=== PATIENT | female | born 1950 | race Caucasian/White ===

== ENCOUNTER 2018-02-28 19:35 | Emergency (ER) | payer MEDICARE, OTHER ==
[2018-02-28] MEDS ORDERED: Sodium Chloride 0.9% 1,000 ML IV SCH (20:00)
--- NOTE | 2018-02-28 20:06 | EDM.PDOC ---
ED HPI GENERAL MEDICAL PROBLEM - General Chief Complaint: General Stated Complaint: SICK Time Seen by Provider: 02/28/18 20:05 Source of Information: Reports: Patient - History of Present Illness INITIAL COMMENTS - FREE TEXT/NARRATIVE: HISTORY AND PHYSICAL: History of present illness: [Patient presents with fever cough and weakness over the last week no nausea vomiting chills sweats no chest pain shortness breath headache dizziness palpitation no bowel or urine symptoms] Review of systems: As per history of present illness and below otherwise all systems reviewed and negative. Past medical history: As per history of present illness and as reviewed below otherwise noncontributory. Surgical history: As per history of present illness and as reviewed below otherwise noncontributory. Social history: No reported history of drug or alcohol abuse. Family history: As per history of present illness and as reviewed below otherwise noncontributory. Physical exam: HEENT: Atraumatic, normocephalic, pupils reactive, negative for conjunctival pallor or scleral icterus, mucous membranes moist, throat clear, neck supple, nontender, trachea midline. Lungs: Clear to auscultation, breath sounds equal bilaterally, chest nontender. Heart: S1S2, regular, negative for clicks, rubs, or JVD. Abdomen: Soft, nondistended, nontender. Negative for masses or hepatosplenomegaly. Negative for costovertebral tenderness. Pelvis: Stable nontender. Genitourinary: Deferred. Rectal: Deferred. Extremities: Atraumatic, negative for cords or calf pain. Neurovascular unremarkable. Neuro: Awake, alert, oriented. Cranial nerves II through XII unremarkable. Cerebellum unremarkable. Motor and sensory unremarkable throughout. Exam nonfocal. Diagnostics: [CBC CMP UA INR troponin lipase cultures EKG Chest 1 view ] Therapeutics: [ saline 1 25 mL per hour Zofran 8 mg IV ]: 750 mg IV now Patient offered admission but refuses at this time Levaquin 500mg by mouth daily #10 no refill Albuterol HFA smoking cessation recommended Return if symptoms persist or worsen Impression: Left lower lobe pneumonia [ fever ] Definitive disposition and diagnosis as appropriate pending reevaluation and review of above. - Related Data Allergies Allergy/AdvReac Type Severity Reaction Status Date / Time No Known Allergies Allergy Verified 04/27/14 12:12 Home Meds: Home Meds . [No Known Home Meds] 02/28/18 [History] Past Medical History - Past Health History Medical/Surgical History: Denies Medical/Surgical History Social & Family History - Tobacco Use Smoking Status *Q: Current Every Day Smoker Years of Tobacco use: 50 Packs/Tins Daily: 1 ED ROS GENERAL - Review of Systems Review Of Systems: See Below ED EXAM, GENERAL - Physical Exam Exam: See Below Course - Vital Signs Last Recorded V/S: Last Vital Signs Temp 100.7 F H 02/28/18 20:02 Pulse 85 02/28/18 20:02 Resp 16 02/28/18 20:02 BP 135/73 02/28/18 20:02 Pulse Ox 99 02/28/18 20:02 - Orders/Labs/Meds Orders: Active Orders 24 hr Category Date Time Status EKG Documentation Completion [RC] STAT Care 02/28/18 19:59 Active Chest 1V Frontal [CR] Stat Exams 02/28/18 19:59 Taken CULTURE BLOOD [BC] Stat Lab 02/28/18 20:22 Received CULTURE BLOOD [BC] Stat Lab 02/28/18 20:44 Received UA W/MICROSCOPIC [URIN] Stat Lab 02/28/18 21:38 Ordered Levofloxacin/Dextrose 5%-Water [Levaquin in D5W 750 MG/ Med 02/28/18 21:37 Active 150 ML] 750 mg Premix Bag 1 bag IV ONETIME Sodium Chloride 0.9% [Normal Saline] 1,000 ml Med 02/28/18 20:00 Active IV STAT Blood Culture x2 Reflex Set [OM.PC] Stat Oth 02/28/18 20:05 Ordered Medication Orders Sodium Chloride (Normal Saline) 1,000 mls @ 125 mls/hr IV STAT RADHA Last Admin: 02/28/18 20:15 Dose: 125 mls/hr Levofloxacin/Dextrose 750 mg/ (Premix) 150 mls @ 100 mls/hr IV ONETIME ONE Stop: 02/28/18 23:06 Labs: Laboratory Tests 02/28/18 02/28/18 02/28/18 Range/Units 20:22 20:22 20:22 WBC 16.61 H (4.0-11.0) K/uL RBC 4.74 (4.30-5.90) M/uL Hgb 14.4 (12.0-16.0) g/dL Hct 41.8 (36.0-46.0) % MCV 88.2 (80.0-98.0) fL MCH 30.4 (27.0-32.0) pg MCHC 34.4 (31.0-37.0) g/dL RDW Std Deviation 41.6 (28.0-62.0) fl RDW Coeff of [place] 13 (11.0-15.0) % Plt Count 239 (150-400) K/uL MPV 11.20 (7.40-12.00) fL Neut % (Auto) 84.5 H (48.0-80.0) % Lymph % (Auto) 9.3 L (16.0-40.0) % Alexander % (Auto) 5.8 (0.0-15.0) % Eos % (Auto) 0.2 (0.0-7.0) % Baso % (Auto) 0.2 (0.0-1.5) % Neut # (Auto) 14.0 H (1.4-5.7) K/uL Lymph # (Auto) 1.6 (0.6-2.4) K/uL Alexander # (Auto) 1.0 H (0.0-0.8) K/uL Eos # (Auto) 0.0 (0.0-0.7) K/uL Baso # (Auto) 0.0 (0.0-0.1) K/uL Nucleated RBC % 0.0 /100WBC Nucleated RBCs # 0 K/uL INR 1.04 Sodium 135 L (136-145) mmol/L Potassium 4.4 (3.5-5.1) mmol/L Chloride 99 (98-107) mmol/L Carbon Dioxide 26.2 (21.0-32.0) mmol/L BUN 12 (7.0-18.0) mg/dL Creatinine 0.8 (0.6-1.0) mg/dL Est Cr Clr Drug Dosing 62.64 mL/min Estimated GFR (MDRD) > 60.0 ml/min Glucose 104 (74-106) mg/dL Calcium 8.9 (8.5-10.1) mg/dL Total Bilirubin 0.5 (0.2-1.0) mg/dL AST 22 (15-37) IU/L ALT 29 (14-63) IU/L Alkaline Phosphatase 76 (46-116) U/L Troponin I < 0.050 (0.000-0.056) ng/mL Total Protein 7.8 (6.4-8.2) g/dL Albumin 3.6 (3.4-5.0) g/dL Globulin 4.2 H (2.0-3.5) g/dL Albumin/Globulin Ratio 0.9 L (1.3-2.8) Lipase 78 (73-393) U/L Meds: Medications Generic Name Dose Route Start Last Admin Trade Name Freq PRN Reason Stop Dose Admin Sodium Chloride 1,000 mls @ 125 mls/hr 02/28/18 20:00 02/28/18 20:15 Normal Saline IV 125 mls/hr STAT RADHA Administration Levofloxacin/Dextrose 750 mg/ 150 mls @ 100 mls/hr 02/28/18 21:37 Premix IV 02/28/18 23:06 ONETIME ONE Discontinued Medications Generic Name Dose Route Start Last Admin Trade Name Freq PRN Reason Stop Dose Admin Ondansetron HCl 8 mg 02/28/18 19:59 02/28/18 20:35 Zofran IVPUSH 02/28/18 20:00 Not Given ONETIME ONE Departure - Departure Time of Disposition: 21:39 Disposition: Home, Self-Care 01 Condition: Good Clinical Impression: Left lower lobe pneumonia - Discharge Information Referrals: Manish Ramirez MD [Primary Care Provider] - Forms: ED Department Discharge Additional Instructions: Medication as prescribed Return if symptoms persist or worsen despite treatment Follow-up with primary care in 2 weeks sooner as needed [facility] - Primary Care [address] [place], [place] [id number] The following information is given to patients seen in the emergency department who are being discharged to home. This information is to outline your options for follow-up care. We provide all patients seen in our emergency department with a follow-up referral. The need for follow-up, as well as the timing and circumstances, are variable depending upon the specifics of your emergency department visit. If you don't have a primary care physician on staff, we will provide you with a referral. We always advise you to contact your personal physician following an emergency department visit to inform them of the circumstance of the visit and for follow-up with them and/or the need for any referrals to a consulting specialist. The emergency department will also refer you to a specialist when appropriate. This referral assures that you have the opportunity for follow-up care with a specialist. All of these measure are taken in an effort to provide you with optimal care, which includes your follow-up. Under all circumstances we always encourage you to contact your private physician who remains a resource for coordinating your care. When calling for follow-up care, please make the office aware that this follow-up is from your recent emergency room visit. If for any reason you are refused follow-up, please contact the [facility] emergency department at and asked to speak to the emergency department charge nurse. - My Orders Last 24 Hours: My Active Orders 02/28/18 19:59 EKG Documentation Completion [RC] STAT Chest 1V Frontal [CR] Stat 02/28/18 20:00 Sodium Chloride 0.9% [Normal Saline] 1,000 ml IV STAT 02/28/18 20:05 Blood Culture x2 Reflex Set [OM.PC] Stat 02/28/18 20:22 CULTURE BLOOD [BC] Stat 02/28/18 20:44 CULTURE BLOOD [BC] Stat 02/28/18 21:37 Levofloxacin/Dextrose 5%-Water [Levaquin in D5W 750 MG/150 ML] 750 mg Premix Bag 1 bag IV ONETIME 02/28/18 21:38 UA W/MICROSCOPIC [URIN] Stat - Assessment/Plan Last 24 Hours: My Active Orders 02/28/18 19:59 EKG Documentation Completion [RC] STAT Chest 1V Frontal [CR] Stat 02/28/18 20:00 Sodium Chloride 0.9% [Normal Saline] 1,000 ml IV STAT 02/28/18 20:05 Blood Culture x2 Reflex Set [OM.PC] Stat 02/28/18 20:22 CULTURE BLOOD [BC] Stat 02/28/18 20:44 CULTURE BLOOD [BC] Stat 02/28/18 21:37 Levofloxacin/Dextrose 5%-Water [Levaquin in D5W 750 MG/150 ML] 750 mg Premix Bag 1 bag IV ONETIME 02/28/18 21:38 UA W/MICROSCOPIC [URIN] Stat
[2018-02-28] MEDS: Ondansetron 4 MG/2 ML SDV IVPUSH ONE ×2 (20:16→20:35)
[2018-02-28 21:17] LABS: CHLORIDE,CL 99 mmol/L (98-107); SODIUM,NA 135 mmol/L (136-145)
[2018-02-28] MEDS ORDERED: Levofloxacin/Dextrose 5%-Water 750 MG in Premix Bag 1 BAG IV ONE (21:37)
--- NOTE | 2018-03-01 09:04 | CR ---
EXAM DATE: 02/28/18 PATIENT'S AGE: 67 Patient: BILLY VALDERRAMA Facility: [place], [place] Site . Site : [id number] Study: XRay Chest [id number]/[id number] 9:18:53 PM Ordering Physician: Doctor Calero Final Report: INDICATION: pain, sob TECHNIQUE: Chest 1 view COMPARISON: December 30, 2011 FINDINGS: Cardiovascular and mediastinum: Stable cardiac silhouette. Mediastinum is within normal limits. Lungs and pleural space: Left lower lobe consolidation. Hyperinflation and scarring. No sign of pleural effusion. No pneumothorax. Bones and soft tissues: Degenerative changes. IMPRESSION: Left lower lobe consolidation. Please correlate for signs of pneumonia. Dictated by Ja Damico MD @ 02/28/2018 9:30:05 PM Dictated by: Ja Damico MD @ 02/28/2018 21:30:20 (Electronic Signature) Report Signed by Proxy. JJ
== END 2018-02-28 23:39 | disposition home or self-care (01) ==
LOC: MW.ED 19:35
DX: J18.9 Pneumonia, unspecified organism (principal); F17.210 Nicotine dependence, cigarettes, uncomplicated
CPT/HCPCS: 71045; 80053; 81001; 83690; 84484; 85025; 85610; 87040; 93005; 96361; 96365; 99285; J1956; J7040; 99283; J2405

== ENCOUNTER 2023-02-27 19:13 | Emergency (ER) | payer MEDICARE, OTHER ==
[2023-02-27 20:45] LABS: BASOPHILS PERCENT AUTO 0.3 % (0.0-1.5); EOSINOPHILS ABSOLUTE AUTO 0.1 K/uL (0.0-0.7); EOSINOPHILS PERCENT AUTO 0.7 % (0.0-7.0); HEMOGLOBIN 14.1 g/dL (12.0-16.0); LYMPHOCYTES ABSOLUTE AUTO 1.8 K/uL (0.6-2.4); LYMPHOCYTES PERCENT AUTO 17.1 % (16.0-40.0); MEAN CORPUSCULAR HEMOGLOBIN 29.3 pg (27.0-32.0); MEAN CORPUSCULAR HGB CONC 33.6 g/dL (31.0-37.0); MEAN CORPUSCULAR VOLUME 87.1 fL (80.0-98.0); MONOCYTES ABSOLUTE AUTO 0.8 K/uL (0.0-0.8); MONOCYTES PERCENT AUTO 7.8 % (0.0-15.0); NEUTROPHILS ABSOLUTE AUTO 7.9 K/uL (1.4-5.7); NEUTROPHILS PERCENT AUTO 74.1 % (48.0-80.0); NRBC ABSOLUTE 0 K/uL; PLATELET COUNT,PLT 169 K/uL (150-400); RED BLOOD CELL COUNT 4.82 M/uL (4.30-5.90); WHITE BLOOD CELL COUNT,WBC 10.63 K/uL (4.0-11.0)
[2023-02-27 21:09] LABS: ALBUMIN 3.6 g/dL (3.4-5.0); BILIRUBIN TOTAL 0.4 mg/dL (0.2-1.0); CALCIUM 9.1 mg/dL (8.5-10.1); CARBON DIOXIDE,CO2 26.9 mmol/L (21.0-32.0); CREATININE 0.8 mg/dL (0.6-1.0); EST CRCL DRUG DOSING (CG) 55.37 mL/min; POTASSIUM,K 4.7 mmol/L (3.5-5.1); PROTEIN TOTAL,TP 7.2 g/dL (6.4-8.2)
== END 2023-02-27 23:13 | disposition home or self-care (01) ==
LOC: MW.ED 19:13
DX: R42 Dizziness and giddiness (principal); R11.0 Nausea; F17.210 Nicotine dependence, cigarettes, uncomplicated; Z20.822 Contact with and (suspected) exposure to COVID-19
CPT/HCPCS: 36415; 80053; 83690; 84484; 85025; 93005; 99284; U0002; 93010; 99283

== ENCOUNTER 2023-07-21 13:05 | Emergency (ER) | payer MEDICARE, OTHER, MEDICAID ==
[2023-07-21 14:13] LABS: CORONAVIRUS COVID-19 NAA NEGATIVE (NEGATIVE); INFLUENZA A NAA NEGATIVE (NEGATIVE); INFLUENZA B NAA NEGATIVE (NEGATIVE); RESPIRATORY SYNCYTIAL VIR NAA NEGATIVE (NEGATIVE)
== END 2023-07-21 14:40 | disposition home or self-care (01) ==
LOC: MW.ED 13:05
DX: J18.9 Pneumonia, unspecified organism (principal); Z20.822 Contact with and (suspected) exposure to COVID-19
CPT/HCPCS: 0241U; 71046; 99283

== ENCOUNTER 2024-05-21 13:45 | Emergency (ER) | payer MEDICARE, OTHER, MEDICAID ==
[2024-05-21] MEDS: Ibuprofen 800 MG Tab PO STA (14:33)
[2024-05-21] MEDS: oxyCODONE 5 MG Tab PO STA (14:33)
[2024-05-21] MEDS: Acetaminophen 500 MG Tab PO STA (14:33)
== END 2024-05-21 17:13 | disposition home or self-care (01) ==
LOC: MW.ED 13:45
DX: M54.6 Pain in thoracic spine (principal); I10 Essential (primary) hypertension; E78.00 Pure hypercholesterolemia, unspecified; Z79.899 Other long term (current) drug therapy; Z75.8 Other problems related to medical facilities and other health care
CPT/HCPCS: 71046; 73010; 99283; A9270

== ENCOUNTER 2024-08-06 09:23 | Emergency (ER) | payer MEDICARE, OTHER, MEDICAID ==
[2024-08-06] MEDS: Sodium Chloride 0.9% 1,000 ML IV ONE (10:11)
[2024-08-06 10:12] LABS: BASOPHILS ABSOLUTE AUTO 0.04 K/uL (0.00-0.20); BASOPHILS PERCENT AUTO 0.2 % (0.0-1.0); EOSINOPHILS ABSOLUTE AUTO 0.03 K/uL (0.00-0.45); EOSINOPHILS PERCENT AUTO 0.2 % (0.0-6.0); HEMATOCRIT 38.8 % (37.0-47.0); HEMOGLOBIN 13.1 g/dL (12.0-16.0); IMMATURE GRAN ABSOLUTE AUTO 0.08 K/uL (0.00-0.05); IMMATURE GRAN PERCENT AUTO 0.4 % (0.0-0.4); LYMPHOCYTES ABSOLUTE AUTO 1.24 K/uL (1.00-4.80); LYMPHOCYTES PERCENT AUTO 6.9 % (24.0-44.0); MEAN CORPUSCULAR HEMOGLOBIN 29.4 pg (28.0-32.0); MEAN CORPUSCULAR HGB CONC 33.8 g/dL (32.0-36.0); MEAN PLATELET VOLUME 12.5 fL (9.4-12.3); MONOCYTES ABSOLUTE AUTO 1.02 K/uL (0.00-0.80); MONOCYTES PERCENT AUTO 5.7 % (0.0-8.0); NEUTROPHILS ABSOLUTE AUTO 15.59 K/uL (1.80-7.70); NEUTROPHILS PERCENT AUTO 86.6 % (41.0-71.0); PLATELET COUNT,PLT 128 K/uL (150-400); RED BLOOD CELL COUNT 4.46 M/uL (4.10-5.30)
[2024-08-06 10:43] LABS: A/G RATIO 0.9 (0.9-1.6); ALANINE AMINOTRANSFERASE,ALT 21 IU/L (14-63); ALBUMIN 3.2 g/dL (3.4-5.0); ALKALINE PHOSPHATASE 69 U/L (46-116); ASPARTATE AMNIOTRANSFERASE,AST 19 IU/L (15-37); BILIRUBIN TOTAL 0.7 mg/dL (0.2-1.0); BLOOD UREA NITROGEN,BUN 15 mg/dL (7.0-18.0); CALCIUM 8.8 mg/dL (8.5-10.1); CARBON DIOXIDE,CO2 29.1 mmol/L (21.0-32.0); CHLORIDE,CL 104 mmol/L (98-107); CREATININE 0.8 mg/dL (0.6-1.0); EST CRCL DRUG DOSING (CG) 53.69 mL/min; GLUCOSE RANDOM 139 mg/dL (74-106); MAGNESIUM 1.9 mg/dL (1.8-2.4); POTASSIUM,K 3.9 mmol/L (3.5-5.1); PROTEIN TOTAL,TP 6.9 g/dL (6.4-8.2); SODIUM,NA 142 mmol/L (136-145)
[2024-08-06 10:44] LABS: ESTIMATED GFR 78 mL/min (>60)
[2024-08-06 11:14] LABS: APPEARANCE,URINE SLT CLOUDY; COLOR,URINE YELLOW; GLUCOSE,URINE NEGATIVE (NEGATIVE); KETONES,URINE 15 mg/dL (NEGATIVE); LEUKOCYTE ESTERASE,URINE MODERATE (NEGATIVE); NITRITE,URINE NEGATIVE (NEGATIVE); OCCULT BLOOD,URINE NEGATIVE (NEGATIVE); PROTEIN,URINE TRACE mg/dL (NEGATIVE)
[2024-08-06 11:17] LABS: BILIRUBIN,URINE SMALL (NEGATIVE)
[2024-08-06 11:24] LABS: RBC,URINE 0-2 (0-2/HPF); WBC,URINE 15-20 (0-5/HPF)
[2024-08-06 11:25] LABS: BACTERIA,URINE 2+ (NEGATIVE); MUCUS,URINE LIGHT (NONE-MOD); SQUAMOUS EPITHELIAL CELLS,UR FEW
[2024-08-06] MEDS: cefTRIAXone 1 GM in Sodium Chloride 0.9% 50 ML IV ONE (12:23)
== END 2024-08-06 15:03 | disposition home or self-care (01) ==
LOC: MW.ED 09:23
DX: S01.512A Laceration without foreign body of oral cavity, initial encounter (principal); W10.9XXA Fall (on) (from) unspecified stairs and steps, initial encounter; N39.0 Urinary tract infection, site not specified; I10 Essential (primary) hypertension; E78.00 Pure hypercholesterolemia, unspecified; F17.210 Nicotine dependence, cigarettes, uncomplicated; Z79.899 Other long term (current) drug therapy; S09.90XA Unspecified injury of head, initial encounter; J44.9 Chronic obstructive pulmonary disease, unspecified; W22.8XXA Striking against or struck by other objects, initial encounter
CPT/HCPCS: 36415; 70450; 70486; 71045; 80053; 81001; 82947; 83735; 84484; 85025; 87086; 93005; 96361; 96365; 99285; J0696; J3490; J7030